=== PATIENT | male | born 1980 | race Caucasian/White ===

== ENCOUNTER → 2020-11-25 | Outpatient (CLI) | payer BC ==
[2020-11-25 10:24] LABS: Basophils % (A) 0 %; Eosinophils # (A) 0.1 k/uL (0-0.7); Eosinophils % (A) 1 %; HCT 52.6 % (39.0-53.0); HGB 18.5 gm/dL (13.0-17.5); Lymphocytes # (A) 1.7 k/uL (1.0-4.8); Lymphocytes % (A) 22 %; MCH 34.2 pg (25.0-35.0); MCHC 35.2 g/dL (31.0-37.0); MCV 97.2 fL (80.0-100.0); Mean Platelet Volume 8.7; Monocytes # (A) 0.5 k/uL (0-1.0); Monocytes % (A) 7 %; Neutrophils # (A) 5.2 k/uL (1.3-7.7); Neutrophils % (A) 67 %; Platelet Count 233 k/uL (150-450); RBC 5.41 m/uL (4.30-5.90); RDW 13.2 % (11.5-15.5); WBC 7.8 k/uL (3.8-10.6)
[2020-11-25 10:44] LABS: Potassium 4.3 mmol/L (3.5-5.1)
== END | disposition home or self-care (01) ==
LOC: LABPAT 09:21
PROVIDERS: ATTEND Orthopaedic Surgery
DX: Z01.812 Encounter for preprocedural laboratory examination (principal); G56.01 Carpal tunnel syndrome, right upper limb
CPT/HCPCS: 36415; 80051; 85025

== ENCOUNTER 2020-12-04 12:46 | Day surgery (SDC) | payer BC, OTHER ==
[~2020-12-04 12:46] MED LIST: DEXAMETHASONE SOD PHOSPHATE 4 MG/ML 1 ML VIAL IV ONE; HYDROmorphone 0.5 MG/0.5 ML SYRINGE IVP PRN; LACTATED RINGERS 1,000 ML IV SCH; ONDANSETRON 4 MG/2 ML VIAL IVP ONE
[2020-12-04 13:17] VITALS: TEMP 98.4
[2020-12-04 13:23] LABS: Glucose,Whole Blood 264 mg/dL (75-99)
[2020-12-04] MEDS ORDERED: INSULIN ASPART (NovoLOG) 100 UNIT/ML VIAL SQ ONE (13:29)
[2020-12-04] MEDS ORDERED: LIDOCAINE 1% (10MG/ML) FOR IV START INTRADERMA ONE (13:30)
[2020-12-04] MEDS ORDERED: PROPOFOL 10 MG/ML 20 ML VIAL IV ONE (13:58)
[2020-12-04] MEDS ORDERED: fentaNYL (PF) 50 MCG/ML 2 ML AMP ONE (13:58)
[2020-12-04] MEDS ORDERED: MIDAZOLAM 2 MG/2 ML VIAL ONE (13:58)
[2020-12-04] MEDS ORDERED: KETAMINE 10 MG/ML 20 ML VIAL ONE (13:58)
[2020-12-04] MEDS ORDERED: LIDOCAINE 1% INJ 10MG/ML (20 ML MDV) ONE (13:58)
[2020-12-04] MEDS ORDERED: BUPIVACAINE (PF) 0.25% 30 ML VIAL SQ ONE (14:08)
--- NOTE | 2020-12-04 14:43 | P.OP ---
Date of Procedure: 12/04/20 Preoperative Diagnosis: Right carpal tunnel syndrome Postoperative Diagnosis: Right carpal tunnel syndrome Procedure(s) Performed: Decompression right median nerve Anesthesia: MAC, local Surgeon: Calvin Muñoz Estimated Blood Loss (ml): 0 Pathology: none sent Condition: stable Disposition: PACU Indications for Procedure: 40-year-old gentleman seen with symptomatic right carpal tunnel syndrome. After treatment options were discussed, he elected to proceed with decompression right median nerve. Consent was obtained. Operative Findings: See description of procedure Description of Procedure: The patient was taken to the operative suite. The patient received IV sedation by the department of anesthesia. He received IV antibiotics. A well-padded tourniquet placed proximal right upper extremity. The right upper extremity was prepped and draped in the normal sterile orthopedic fashion. I infiltrated the proposed incision site with 10 mL quarter percent plain Marcaine. When sufficient local anesthesia was noted the extremity was elevated and the tourniquet was insufflated to 250. I made an incision beginning at the distal volar wrist crease extending distally approximately 3 cm in line with the fourth metacarpal sharply through skin. I dissected down to the palmar fascia and then to the transverse carpal ligament. I made a small incision in the central portion of the transverse carpal ligament. I released the transverse carpal ligament proximally and distally with blunt Metzenbaums. There was good complete release of transcarpal ligament and good decompression of the nerve. There was good hemostasis. The wound was irrigated. Skin margins were proximal nylon suture. Sterile dressings were applied. The tourniquet was released and immediate capillary refill of all digits noted. The patient was now awakened and transferred to recovery in stable condition.
[2020-12-04 14:45] VITALS: BP 131/80; PULSE 73; RESP 20
== END 2020-12-04 15:01 | disposition home or self-care (01) ==
LOC: OR 12:46
PROVIDERS: ATTEND Orthopaedic Surgery
DX: G56.01 Carpal tunnel syndrome, right upper limb (principal); E11.9 Type 2 diabetes mellitus without complications; E78.5 Hyperlipidemia, unspecified; M19.90 Unspecified osteoarthritis, unspecified site; K21.9 Gastro-esophageal reflux disease without esophagitis; F19.10 Other psychoactive substance abuse, uncomplicated; Z79.1 Long term (current) use of non-steroidal anti-inflammatories (NSAID); Z79.4 Long term (current) use of insulin; Z79.899 Other long term (current) drug therapy
CPT/HCPCS: 64721; J2250; J1100; J0690; J2405; J2001; J3010; J2704

== ENCOUNTER 2020-12-18 10:34 | Day surgery (SDC) | payer BC ==
[2020-12-12 14:55] VITALS: BMI 26.5
--- NOTE | 2020-12-17 16:03 | HP ---
HISTORY AND PHYSICAL REASON FOR ADMISSION: Surgery scheduled for 12/18/2020 HISTORY OF PRESENT ILLNESS: Manuel Rucker is a 40-year-old gentleman seen with symptomatic left carpal tunnel syndrome. We discussed options for treatment. He elected to proceed with decompression left median nerve. Consent was obtained. PAST MEDICAL HISTORY: Ddj-[id number]-orutbwnmd diabetes, hyperlipidemia. PAST SURGICAL HISTORY: Decompression of the right median nerve. MEDICATIONS: Insulin, atorvastatin. ALLERGIES: None. SOCIAL HISTORY: Denies tobacco use. PHYSICAL EXAMINATION: Physical evaluation of the left hand: Positive carpal compression. Positive carpal Tinel's causing numbness and tingling throughout the median nerve distribution. He does decreased sensation throughout the median nerve distribution. There is a good radial pulse present. Good perfusion distally. Nontender along the A1 jefe areas. X-RAYS: Of the left hand and wrist revealed no osseous abnormality. EMG of the upper extremities reveals severe carpal tunnel syndrome. IMPRESSION: 1. Left carpal tunnel syndrome. 2. Insulin-dependent diabetes. 3. Hyperlipidemia. PLAN: Decompression left median nerve. Surgery scheduled for 12/18/2020. MMODL / IJN: [id number] /
[~2020-12-18 10:34] MED LIST changes: +LIDOCAINE 1% (10MG/ML) FOR IV START INTRADERMA PRN; +MIDAZOLAM 2 MG/2 ML VIAL IV PRN
[2020-12-18 11:10] VITALS: RESP 16; TEMP 97.9
[2020-12-18 11:16] LABS: Glucose,Whole Blood 304 mg/dL (75-99)
[2020-12-18] MEDS ORDERED: PROPOFOL 10 MG/ML 20 ML VIAL IV ONE (12:18)
[2020-12-18] MEDS ORDERED: KETOROLAC 15 MG/ML 1 ML VIAL ONE (12:18)
[2020-12-18] MEDS ORDERED: fentaNYL (PF) 50 MCG/ML 2 ML AMP ONE (12:18)
[2020-12-18] MEDS ORDERED: BUPIVACAINE (PF) 0.25% 30 ML VIAL SQ ONE ×2 (12:18→12:30)
[2020-12-18] MEDS ORDERED: MIDAZOLAM 2 MG/2 ML VIAL ONE (12:18)
--- NOTE | 2020-12-18 12:50 | P.OP ---
Date of Procedure: 12/18/20 Preoperative Diagnosis: Left carpal tunnel syndrome Postoperative Diagnosis: Left carpal syndrome Procedure(s) Performed: Decompression left median nerve Anesthesia: MAC, local Surgeon: Calvin Muñoz Estimated Blood Loss (ml): 1 Pathology: none sent Condition: stable Disposition: PACU Indications for Procedure: 40-year-old patient seen with symptomatic left carpal syndrome. After treatment options were discussed, he elected to proceed with compression left median nerve Operative Findings: See description of procedure Description of Procedure: The patient was taken to the operative suite. The patient received preoperative IV antibiotics. A well-padded tourniquet was placed along the proximal left upper extremity. The left upper extremity was prepped and draped in the normal sterile orthopedic fashion. The proposed incision site was infiltrated with 10 mL quarter percent plain Marcaine. Once sufficient local analgesia was noted the extremity was elevated and the tourniquet was insufflated to 250. I made an incision beginning at the distal volar wrist crease extending distally approximate 3 cm in line with the fourth metacarpal sharply through skin. I dissected down through the subcu soft tissues down through the palmar fascia to the transverse carpal ligament. I made a small incision through the transverse carpal ligament. I completed the release proximally and distally with blunt Metzenbaums. There was good complete decompression of the nerve noted. Hemostasis achieved via electrocautery. Wound irrigated. Skin margins approximated nylon suture. Sterile dressings were applied followed by loose web roll and Coban band. The tourniquet was now deflated and we noted immediate capillary refill of all digits. The patient was now awakened and transferred to recovery stable condition.
[2020-12-18 13:19] VITALS: BP 117/79; PULSE 69
== END 2020-12-18 13:29 | disposition home or self-care (01) ==
LOC: OR 10:34
PROVIDERS: ATTEND Orthopaedic Surgery
DX: G56.02 Carpal tunnel syndrome, left upper limb (principal); E11.9 Type 2 diabetes mellitus without complications; Z79.4 Long term (current) use of insulin; E78.5 Hyperlipidemia, unspecified; Z79.899 Other long term (current) drug therapy
CPT/HCPCS: 64721; J2250; J0690; J3010; J1885; J2704